=== PATIENT | female | born 1975 | race Two or more races ===

== ENCOUNTER 2024-10-27 21:28 | Emergency (ER) | payer MEDICAID, SELFPAY ==
[2024-10-27 21:29] VITALS: BMI 36.1
[2024-10-27 21:41] VITALS: BP 166/88; PULSE 94; RESP 18; TEMP 37.2; O2SAT 95
--- NOTE | 2024-10-27 22:14 | PC.NURSE ---
Patient refused PO medications, patient states she cannot take pills and is requesting shot. Provider aware.
--- NOTE | 2024-10-27 23:05 | EDNOTE_ITS ---
ED Dental RME/HPI General Chief complaint: Dental/Oral/Throat Stated complaint: LEFT TOOTH PAIN Time Seen by Provider: 10/27/24 21:47 Source: patient Arrival date/time: 10/27/24 21:28 Mode of arrival: ambulatory Limitations: no limitations RME / HPI RME / HPI Narrative: Dr. Brennan?s Main ED Evaluation: 49yo female presents to the ED for a chief complaint of left lower dental pain x 4 days. Patient states her pain has been progressively getting worse, reporting she doesn't have a dentist appointment until , so she came in for evaluation. Patient states she isn't able to take a lot of medications , reporting she usually takes a half dose of whatever medication she is being prescribed. She is requesting any medications to be given IV and to also receive IVF. She denies any fever, chills or any other associated symptoms. Related Data Previous Rx's ?Medication ?Instructions ?Recorded doxycycline hyclate 100 mg tablet 100 mg PO BID 7 days #14 tabs 10/27/24 Allergies Allergy/AdvReac Type Severity Reaction Status Date / Time morphine Allergy Verified 10/27/24 22:12 Penicillins Allergy Verified 10/27/24 22:12 Review of Systems Review of Systems Systems Reviewed: All systems reviewed, normal except as documented Past Medical History Social History SMOKING STATUS: Never smoker ED Exam Narrative Physical exam: GENERAL APPEARANCE: alert and oriented x 4, well-developed, well-nourished, no acute distress VITALS: All vitals were reviewed and the pulse ox is 95% on room air, which is normal according to my interpretation. HEENT: Normocephalic, atraumatic; pupils equal, round, reactive to light; EOMI; mucous membranes pink, moist; oropharynx clear; poro dentition; tooth number 18 has severe tooth decay without any adjacent gingival swelling, erythema or fluctuance; left facial mandibular swelling NECK: Supple LUNGS: CTABL; no wheezes, no rales, no rhonchi HEART: Regular rate, regular rhythm; normal S1, S2; no murmurs ABDOMEN: non distended; normal BS; soft, no tenderness, no guarding, no reboun d; no masses, no organomegaly, no hernia BACK: no CVA tenderness EXTREMITIES: atraumatic; no edema NEUROLOGIC: awake; alert and oriented x4; cranial nerves II-XII grossly intact; no focal sensory or motor deficits PSYCHIATRIC: appropriate mood and affect SKIN: warm, dry, normal color; no rashes General Limitations: Present no limitations Course Quality Measures none Orders Category Date Time Status IV [Insert IV] NOW Care 10/27/24 23:06 Completed Acetaminophen Stat Lab 10/27/24 23:27 Completed Amoxicillin/Pot Clav 875 [Augmentin 875] Med 10/27/24 21:47 Discontinued 1 tab PO X1 ONE HYDROcodone*/APAP 5/325 [Fortuna 5/325] Med 10/27/24 21:47 Discontinued 1 tab PO X1 ONE Ketorolac Inj [Toradol Inj] Med 10/27/24 23:06 Discontinued 30 mg IVP X1 ONE Sodium Chloride 0.9% 1000 ml [Ns] 1,000 ml Med 10/27/24 23:06 Discontinued IV 999 mls/hr cefTRIAXone [Rocephin] 1,000 mg Med 10/27/24 22:16 Discontinued Lidocaine 1% 20 ml [Xylocaine 1% 20 ML] 2.1 ml IM X1 cefTRIAXone/D5w 1gm IV premix [Rocephin/D5w 1gm IV Med 10/28/24 00:03 Discontinued premix] 1 gm in 50 ml IV X1 Vital Signs Vital signs: Vital Signs Temperature 98.9 F 10/27/24 21:41 Pulse Rate 94 10/27/24 21:41 Respiratory Rate 18 10/27/24 21:41 Blood Pressure 166/88 H 10/27/24 21:41 Pulse Oximetry (%) 95 10/27/24 21:41 Oxygen Delivery Method Room Air 10/27/24 21:41 Dental / Oral MDM Narrative MDM Narrative:: Scribe Attestation: 10/27/24 Kathleen Middleton am scribing for and in the presence of Dr. Brennan. Patient data External records reviewed:: [facility] previous records (Per chart review, patient has no relevant previous ED visits.) Clinical information provided by:: patient Social determinants that could affect healthcare access:: none Patient has the following chronic illnesses:: none How is presenting disease/condition affected by chronic disease/condition?: no chronic disease Evaluation data The following diagnostics were reviewed and interpreted by me:: other (specify) (none) Lab and/or radiology exams considered but not ordered:: none Interpretation Summary: none Medications / Prescriptions Medications or Prescriptions considered but not ordered:: none Medication administrations:: Medication Administration History Discontinued Medications Hydrocodone Bitart/Acetaminophen (Hydrocodone/Apap 5/325 Tablet) 1 tab PO X1 ONE Stop: 10/27/24 21:48 Last Admin: 10/27/24 22:13 Dose: Not Given Documented By: Non-Admin Reason: Patient Refused Amoxicillin/Clavulanate Potassium (Amoxicillin/Pot Clav 875 Tablet) 1 tab PO X1 ONE Stop: 10/27/24 21:48 Last Admin: 10/27/24 22:13 Dose: Not Given Documented By: Non-Admin Reason: Patient Refused Ceftriaxone Sodium 1,000 mg/ (Lidocaine HCl 2.1 ml) 0 mg IM X1 ONE Stop: 10/27/24 22:17 Last Admin: 10/28/24 00:24 Dose: Not Given Documented By: LUIS Non-Admin Reason: Cancelled by Provider Sodium Chloride (Ns) 1,000 mls @ 999 mls/hr IV .Q1H1M ONE Stop: 10/28/24 00:06 Last Infusion: 10/28/24 01:14 Dose: Infused Documented By: Admin: 10/28/24 00:23 Dose: 999 mls/hr Documented By: ELICIA Ceftriaxone Sodium/Dextrose (Rocephin/D5w 1gm Iv Premix) 1 gm in 50 mls @ 100 mls/hr IV X1 ONE Stop: 10/28/24 00:32 Last Infusion: 10/28/24 01:03 Dose: Infused Documented By: Admin: 10/28/24 00:23 Dose: 100 mls/hr Documented By: BD Ketorolac Tromethamine (Ketorolac Inj 30 Mg/Ml Vial) 30 mg IVP X1 ONE Stop: 10/27/24 23:07 Last Admin: 10/28/24 00:23 Dose: 30 mg Documented By: BD see above Consultations Consultation(s) initiated? (list below): No Diagnosis Dental Differential Diagnosis: dental abscess and other (dental infection, facial cellulitis) Most likely diagnosis given after review of the tests above:: see clinical impression below Admission Indicated Admission indicated?: not indicated Admission Request Was there a request for admission?: No Disposition Plan Disposition Plan: Discharge Discharge Attestation Discharge Attestation: The patient and all family members were given an opportunity to ask questions and understood the discharge instructions. Discharge instructions specifically effects, indications for sooner follow up or return to the emergency department, and the expected course of current diagnosis. Patient condition: Stable Discharge Plan Plan Patient Disposition: HOME (Self Care) Disposition Comment: Stable Prescriptions/Referrals Prescriptions/Med Rec: New doxycycline hyclate 100 mg tablet 100 mg PO BID 7 Days Qty: 14 0RF Referrals: [facility] [Outside] - In 1 week Problem List Clinical Impression: Dental infection Patient/Caregiver Discharge Instructions Discharge Activity: activity as tolerated Education Materials: ED Dental Abscess Additional Instructions: Please follow-up with PCP within 24-48 hours and return immediately if symptoms worsen. See dentist soon. Print Language: English Stand Alone Forms: Patient Portal Info Letter MONA/TENA Supervising Physician MONA/TENA Supervising Physician: Dr. Brennan
--- NOTE | 2024-10-27 23:05 | PD.EDRME ---
Rapid Medical Screening Exam RME Arrival date/time: 10/27/24 21:28 49F with no significant PMH presents to ED with 1 day of L toothache. Chief Complaint: Dental/Oral/Throat Time Seen by Provider: 10/27/24 21:47 Vital signs: Vital Signs Temperature 98.9 F 10/27/24 21:41 Pulse Rate 94 10/27/24 21:41 Respiratory Rate 18 10/27/24 21:41 Blood Pressure 166/88 H 10/27/24 21:41 Pulse Oximetry (%) 95 10/27/24 21:41 Oxygen Delivery Method Room Air 10/27/24 21:41
[2024-10-28 00:11] LABS: Acetaminophen < 2.0 mcg/mL (10.0-20.0)
[2024-10-28] MEDS: SODIUM CHLORIDE 0.9% 1000 ML 1,000 ML 999 ML IV (00:23)
[2024-10-28] MEDS: KETOROLAC INJ 30 MG/ML VIAL IVP (00:23)
[2024-10-28] MEDS: cefTRIAXone/D5w 1gm IV premix 1 GM/50 ML BAG IV (00:23)
[2024-10-28 00:29] VITALS: BP 152/77; PULSE 78; RESP 16; TEMP 36.9; O2SAT 100
[2024-10-28 01:13] VITALS: BP 155/64; PULSE 75; RESP 16; TEMP 36.9; O2SAT 100
== END 2024-10-28 01:10 | disposition home or self-care (01) ==
LOC: SERX 22:05
PROVIDERS: Emergency Provider Emergency Medicine
DX: K04.7 Periapical abscess without sinus (principal)
CPT/HCPCS: 36415; 80329; 96365; 96375; 99284; J0696; J1885; J7030; G0480

== ENCOUNTER 2024-12-02 15:40 | Emergency (ER) | payer MEDICAID, SELFPAY ==
[2024-12-02 15:40] VITALS: BMI 183.2
[2024-12-02 16:27] VITALS: BP 147/82; PULSE 93; RESP 18; TEMP 36.6; O2SAT 97
--- NOTE | 2024-12-02 16:34 | PC.NURSE ---
CALLED [facility] AND THEY REPORTED THAT THEY WILL GET INTO CONTACT WITH THE PT.
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
[2024-12-02 18:56] LABS: HCG Qualitative,Urine Negative
[2024-12-02 20:27] VITALS: BP 153/83; PULSE 77; RESP 18; TEMP 36.9; O2SAT 98
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
== END 2024-12-02 21:19 | disposition home or self-care (01) ==
PROVIDERS: Emergency Provider Emergency Medicine; PCP Family Medicine
DX: S16.1XXA Strain of muscle, fascia and tendon at neck level, initial encounter (principal); S13.4XXA Sprain of ligaments of cervical spine, initial encounter; S29.011A Strain of muscle and tendon of front wall of thorax, initial encounter; M62.838 Other muscle spasm; V43.62XA Car passenger injured in collision with other type car in traffic accident, initial encounter
CPT/HCPCS: 70450; 71250; 72125; 74176; 81025; 99284